=== PATIENT | male | born 1975 | race Caucasian/White ===

== ENCOUNTER 2020-05-18 12:44 | Day surgery (SDC) | payer OTHER ==
[~2020-05-18] VITALS: Ht 175.3 cm; Wt 73.0 kg
--- NOTE | 2020-05-18 13:22 | NUR ---
05/18/20 1322 Mel Carreon FIRST IV ATTEMPT IN RIGHT HAND INFILTRATED. SECOND ATTEMPT IN RIGHT AC WAS SUCCESSFUL AND TOLERATED WELL. [facility]
[2020-06-02] MEDS ORDERED: [UNRECOGNIZED DRUG - OTHER] PO (13:06)
[2020-06-02] MEDS ORDERED: MULVITA PO (13:07)
[2020-06-02] MEDS ORDERED: VITAMIN D2 PO (13:07)
== END 2020-05-18 14:50 | disposition home or self-care (01) ==
LOC: ORSCSDS 12:44
PROVIDERS: Surgery
PROC: 0DJD8ZZ Inspection of Lower Intestinal Tract, Via Natural or Artificial Opening Endoscopic (ICD-10-PCS; principal; 2020-05-18 14:00)
DX: K62.5 Hemorrhage of anus and rectum (principal); K64.2 Third degree hemorrhoids; Z87.891 Personal history of nicotine dependence
CPT/HCPCS: A9270; J2250; J2704; J7120

== ENCOUNTER 2020-06-04 10:18 | Day surgery (SDC) | payer OTHER ==
[~2020-06-04] VITALS: Ht 175.3 cm; Wt 75.2 kg
[~2020-06-04 10:18] MED LIST: MULVITA PO; VITAMIN D2 PO; [UNRECOGNIZED DRUG - OTHER] PO
--- NOTE | 2020-06-04 10:51 | NUR ---
Ambulatory in Day Surgery History, Chart, Medications and Allergies reviewed before start of procedure. LUNGS CLEAR T/O. Patient confirms NPO status and agrees with scheduled surgery.
--- NOTE | 2020-06-04 13:45 | NUR ---
REPORT RECIEVED FROM NURSE, PT STABLE, DROWSY. DENIES PAIN, STATES PRESSURE. GIVEN WATER. CALL TO [employer]IRLFRIEND FOR RIDE HOME, LEFT MESSAGE.
--- NOTE | 2020-06-04 14:29 | NUR ---
GIVEN RX FOR PAIN. STATES PAIN BETTER AT THIS TIME.
--- NOTE | 2020-06-04 15:10 | NUR ---
Discharge instructions reviewed with patient. Patient verbalizes understanding. Copy given to patient to take home. Patient States Post-Procedure ride home has been arranged. Discharged via AMBULATING WITH RN TO Private car for ride home.
== END 2020-06-04 15:13 | disposition home or self-care (01) ==
LOC: ORSCMMR 10:18 → ORD 11:45 → ORSCMMR 13:16
PROVIDERS: Surgery
PROC: 06BY0ZC Excision of Hemorrhoidal Plexus, Open Approach (ICD-10-PCS; principal; 2020-06-04 11:45)
DX: K64.2 Third degree hemorrhoids (principal); F41.8 Other specified anxiety disorders; Z87.891 Personal history of nicotine dependence
CPT/HCPCS: 88304; J0330; J1100; J1885; J2250; J2405; J2704; J3010; J7120

== ENCOUNTER → 2022-05-24 | Outpatient (CLI) | payer OTHER | LOC: LAB SHORT 15:10 → PLD 15:10 | DX: D48.5 Neoplasm of uncertain behavior of skin (principal) | CPT/HCPCS: 88305 ==

== ENCOUNTER → 2024-11-24 | Outpatient (CLI) | payer OTHER | LOC: LAB 07:53 → LAB SHORT 07:53 | DX: L72.0 Epidermal cyst (principal) | CPT/HCPCS: 88304 ==